=== PATIENT | female | born 1995 | race Caucasian/White ===

== ENCOUNTER 2021-08-27 18:53 | Emergency (ER) | payer BC, MEDICAID, SELFPAY ==
[2021-08-27 19:11] VITALS: BP 142/77; PULSE 116; RESP 18; TEMP 37.3; O2SAT 100
[2021-08-27 19:24] VITALS: PULSE 117; RESP 18; O2SAT 100
--- NOTE | 2021-08-27 19:29 | ED.ABDPAIN ---
HPI - Abdominal Pain General Chief Complaint: Abdominal Pain Stated Complaint: 18 weeks , abdominal pain, constipation? Time Seen by Provider: 08/27/21 19:22 Source: patient History of Present Illness HPI narrative: Patient presents with abdominal pain she is G1, P0 approximately 18+6. Reports he has had upper abdominal pain since yesterday getting worse pain is achy, constant, no clear aggravating or alleviating factors, no radiation. Pain reports she has a history of constipation and feels like this is constipation her last normal bowel movement was 4 to 5 days ago she has had small hard stools over the past 4 to 5 days. She denies urinary symptoms. Reports some vaginal bleeding was had that throughout her and is being monitored by her OB. Denies any lightheadedness or fevers. Related Data Allergies Allergy/AdvReac Type Severity Reaction Status Date / Time No Known Allergies Allergy Verified 08/27/21 20:03 Review of Systems Review of Systems: CONSTITUTIONAL: Denies fever, chills, or sweats. EYES: Denies visual changes, redness, or discharge. ENT: Denies rhinorrhea, congestion, sore throat, or otalgia. CARDIOVASCULAR: Denies chest pain, palpitations, or edema. RESPIRATORY: Denies cough or dyspnea. GASTROINTESTINAL: Reports abdominal pain and nausea GENITOURINARY: Denies dysuria or hematuria. SKIN: Denies rash or itching. MUSCULOSKELETAL: Denies back pain, joint pain, or myalgia. NEUROLOGIC: Denies headache, numbness, dizziness, or weakness. PSYCHIATRIC: Denies anxiety or depression. All systems reviewed & are unremarkable except as noted in HPI and below Exam Narrative: GENERAL: Well-appearing, well-nourished, and in no acute distress. HEAD: Normocephalic, atraumatic. EYES: PERRLA and EOMI. ENT: Nares clear, no rhinorrhea or epistaxis. Mucous membranes moist. NECK: Supple. No masses. No JVD CHEST: Clear to auscultation. No respiratory distress. No wheezes rales or rhonchi HEART: Regular rate and rhythm. No murmur heard. Normal peripheral pulses. ABDOMEN: Gravid abdomen mild tenderness palpation in epigastric area soft,nondistended. EXTREMITIES: Normal range of motion. No edema. SKIN: Warm, dry, no rash. NEURO: No focal deficits. Alert and oriented x3. PSYCH: Normal mood and affect. Course Reevaluation(s) Reevaluation #1: Patient reports bowel movement after fleets enema reports mild pain still present but has improved slightly continue her efforts at home. Work-up thus far is clinically unremarkable Date: 08/27/21 Time: 21:19 Vital Signs Vital signs: Vital Signs Temperature 37.3 C 08/27/21 19:11 Pulse Rate 116 H 08/27/21 19:11 Respiratory Rate 18 08/27/21 19:11 Blood Pressure 142/77 H 08/27/21 19:11 Pulse Oximetry 100 08/27/21 19:11 Temperature 37.6 C 08/27/21 21:37 Pulse Rate 112 H 08/27/21 21:37 Respiratory Rate 18 08/27/21 21:37 Blood Pressure 144/72 H 08/27/21 21:37 Pulse Oximetry 99 08/27/21 21:37 MDM - Abdominal Pain MDM Narrative Medical decision making narrative: H&P as above, vss, pt looks clinically well, exam nonacute abdomen, labs with mild leukocytosis likely related to , additional labs/img considered, symptomatic relief available as needed, on reevaluation pt continues to looks clinically well. Suspect constipation related , dns pancreatitis, perforation, severe sepsis. plan to tx/monitor as op w/ pcm f/u findings/plan discussed with pt, pt agree/comfortable with plan, return precautions given Lab Data Result diagrams: 08/27/21 19:30 08/27/21 19:30 Labs: Lab Results 08/27/21 08/27/21 08/27/21 Range/Units 19:30 19:30 19:30 WBC 12.3 H (4.5-10.0) K/mm3 RBC 4.53 (4.2-5.4) M/mm3 Hgb 12.2 (12.0-15.0) g/dL Hct 37.3 (37.0-47.0) % MCV 82.3 (80-100) fl MCH 26.9 (26-34) pg MCHC 32.7 (32-36) g/dl RDW 13.6 (11.5-14.5) % Plt Count 201 (150-375) k/mm3 MPV
[2021-08-27 19:40] LABS: Basophils Percent Auto 0.2 % (0.2-1.2); Eosinophils Absolute Auto 0.1 K/mm3 (0-0.3); Hematocrit 37.3 % (37.0-47.0); Hemoglobin 12.2 g/dL (12.0-15.0); Immature Granulocyte Absolute 0.06 K/mm3 (0.00-0.031); Immature Granulocyte Percent A 0.5 % (0-0.5); Lymphocytes Absolute Auto 0.63 K/mm3 (0.9-3.2); Lymphocytes Percent Auto 5.1 % (18.3-44.2); Mean Corpuscular HGB Conc 32.7 g/dl (32-36); Mean Corpuscular Hemoglobin 26.9 pg (26-34); Mean Corpuscular Volume 82.3 fl (80-100); Mean Platelet Volume 9.8 fl (7.4-10.4); Monocytes Absolute Auto 0.6 K/mm3 (0.1-0.6); Monocytes Percent Auto 4.6 % (2.6-8.5); Neutrophils Absolute Auto 10.9 K/mm3 (1.3-6.7); Neutrophils Percent Auto 88.6 % (45.5-73.1); Platelet Count Result 201 k/mm3 (150-375); Red Blood Count 4.53 M/mm3 (4.2-5.4); Red Cell Distribution Width 13.6 % (11.5-14.5); White Blood Count 12.3 K/mm3 (4.5-10.0)
[2021-08-27 19:47] LABS: Add Urine Microscopic? YES; Appearance Urine Clear (Clear); Bilirubin Urine Negative (Negative); Blood Urine Negative (Negative); Color Urine Yellow (Yellow); Glucose Urine UA Negative (Negative); Ketones Urine 2+ mg/dL (Negative); Leukocyte Esterase Ur 1+ LEU/UL (Negative); Mucus Urine Rare /lpf; Nitrate Urine Negative (Negative); Protein Urine Negative (Negative); Specific Grav Ur 1.024 (1.001-1.035); Squamous Epithelial Cell Urine Many /hpf (Few); Urobilinogen Urine Negative mg/dL (<2.0); WBC Urine 0-3 /hpf
[2021-08-27 19:58] LABS: Alanine Aminotransferase 37 U/L (4-35); Albumin Level 3.9 g/dL (3.5-5.1); Alkaline Phosphatase 79 U/L (38-126); Anion Gap 7 mmol/L (8-16); Aspartate Amino Transferase 33 U/L (14-36); Bilirubin,Total 0.6 mg/dL (0.2-1.3); Blood Urea Nitrogen 9 mg/dL (7-17); Calcium 8.5 mg/dL (8.4-10.2); Carbon Dioxide 22 mmol/L (22-30); Chloride 103 mmol/L (98-107); Estimated CRCL calculation 144 ml/min; Estimated Glomerular Filt Rate > 60; Glucose 108 mg/dL (65-110); Lipase 62 U/L (23-300); Potassium 3.9 mmol/L (3.4-5.0); Sodium 132 mmol/L (137-145)
[2021-08-27] MEDS: SODIUM CHLORIDE 0.9% IV 1,000 ML 999 ML IV CONT (20:04)
[2021-08-27] MEDS: Please add drug allergy info to patient profile. 1 EACH XX (20:06)
--- NOTE | 2021-08-27 20:47 | PC.NURSE ---
Patient using bedside commode at this time.
[2021-08-27 21:37] VITALS: BP 144/72; PULSE 112; RESP 18; TEMP 37.6; O2SAT 99
== END 2021-08-27 21:40 | disposition home or self-care (01) ==
PROVIDERS: Emergency Provider Emergency Medicine; PCP Family Medicine
DX: O26.892 Other specified pregnancy related conditions, second trimester (principal); R10.10 Upper abdominal pain, unspecified; O99.612 Diseases of the digestive system complicating pregnancy, second trimester; K59.00 Constipation, unspecified; Z3A.18 18 weeks gestation of pregnancy
CPT/HCPCS: 36415; 80053; 81001; 83690; 84702; 85025; 96360; 99283; J7030

== ENCOUNTER 2022-01-13 15:14 | Outpatient (CLI) | payer OTHER, SELFPAY ==
[2022-01-13] VITALS (9 sets, daily range): BP systolic 128–139; BP diastolic 81–93; PULSE 74–88; O2SAT 99
[2022-01-13 16:14] LABS: Basophils Percent Auto 0.2 % (0.2-1.2); Eosinophils Absolute Auto 0.2 K/mm3 (0-0.3); Eosinophils Percent Auto 1.7 % (0-4.4); Hematocrit 34.9 % (37.0-47.0); Immature Granulocyte Absolute 0.05 K/mm3 (0.00-0.031); Immature Granulocyte Percent A 0.6 % (0-0.5); Lymphocytes Absolute Auto 1.56 K/mm3 (0.9-3.2); Lymphocytes Percent Auto 17.3 % (18.3-44.2); Mean Corpuscular HGB Conc 31.5 g/dl (32-36); Mean Corpuscular Hemoglobin 25.1 pg (26-34); Mean Corpuscular Volume 79.5 fl (80-100); Mean Platelet Volume 12.3 fl (7.4-10.4); Monocytes Percent Auto 11.2 % (2.6-8.5); Neutrophils Absolute Auto 6.2 K/mm3 (1.3-6.7); Platelet Count Result 211 k/mm3 (150-375); Red Blood Count 4.39 M/mm3 (4.2-5.4); Red Cell Distribution Width 14.3 % (11.5-14.5)
[2022-01-13 16:20] LABS: Appearance Urine Slightly Cloudy (Clear); Bilirubin Urine Negative (Negative); Blood Urine Negative (Negative); Color Urine Yellow (Yellow); Glucose Urine UA Trace mg/dL (Negative); Ketones Urine Negative (Negative); Leukocyte Esterase Ur 1+ LEU/UL (NEGATIVE); Nitrate Urine Negative (Negative); Protein Urine 1+ mg/dL (Negative); Specific Grav Ur 1.015 (1.001-1.035); Urobilinogen Urine 0.2 mg/dL (<2.0)
[2022-01-13 16:24] LABS: Bacteria Urine Trace /hpf; RBC Urine 0-2 /hpf (0-2); Squamous Epithelial Cell Urine Rare /hpf (Few); WBC Urine 0-3 /hpf (0-3)
[2022-01-13 16:24] LABS: Creatinine Urine 49.1 mg/dL; Total Protein Urine Random 42 mg/dL; Ur Ttl Prot Creatinine Ratio 0.86 mg/mg (0-0.20)
[2022-01-13 16:31] LABS: Add Urine Microscopic? YES
--- NOTE | 2022-01-13 16:56 | PC.NURSE ---
Addendum entered by Nubia Alford RN 01/13/22 16:59: Actual time 1640 Original Note: Dr. Thornton called to review blood pressure, lab results, and tracing. Orders received to D/C with 24 hour urine.
[2022-01-14 04:13] LABS: Alanine Aminotransferase 9 U/L (6-35); Albumin Level 3.2 g/dL (3.5-5.1); Alkaline Phosphatase 205 U/L (38-126); Anion Gap 5 mmol/L (8-16); Aspartate Amino Transferase 17 U/L (14-36); Bilirubin,Total 0.2 mg/dL (0.2-1.3); Blood Urea Nitrogen 9 mg/dL (7-17); Calcium 8.5 mg/dL (8.4-10.2); Carbon Dioxide 19 mmol/L (22-30); Chloride 108 mmol/L (98-107); Estimated Glomerular Filt Rate > 60; Glucose 81 mg/dL (65-110); Potassium 4.4 mmol/L (3.4-5.0); Sodium 132 mmol/L (137-145); Uric Acid 4.6 mg/dL (2.5-7.5)
== END 2022-01-13 16:51 | disposition home or self-care (01) ==
LOC: ANHOBOP 15:18 → ANHOBPP 15:21
PROVIDERS: Student in an Organized Health Care Education/Training Program; PCP Family Medicine; Visit Provider Obstetrics & Gynecology
DX: O13.9 Gestational [pregnancy-induced] hypertension without significant proteinuria, unspecified trimester (principal); Z3A.00 Weeks of gestation of pregnancy not specified
CPT/HCPCS: 36415; 59025; 80053; 81001; 82570; 84156; 84550; 85025; 87086; 87088; 99199

== ENCOUNTER 2022-01-14 16:13 | Outpatient (CLI) | payer OTHER, SELFPAY ==
[2022-01-14 16:28] VITALS: BMI 40.3
[2022-01-14 19:40] LABS: Collection Time Urine 24 HOURS
[2022-01-14 19:43] LABS: Total Volume 24 Hour Urine 1600 ml
[2022-01-14 19:44] LABS: Patient Weight 213 Lbs
[2022-01-14 19:52] LABS: Creatinine Clearance Urine 153.6 ml/min (75-125); Creatinine Urine 92.7 mg/dL; Total Protein Urine Random 40 mg/dL
[2022-01-14 19:58] LABS: Total Protein Urine 24 Hr 640 mg/24hr (28-141)
== END 2022-01-14 16:14 | disposition home or self-care (01) ==
LOC: ANHOBOP 16:24
PROVIDERS: PCP Family Medicine; Visit Provider Student in an Organized Health Care Education/Training Program
DX: O13.9 Gestational [pregnancy-induced] hypertension without significant proteinuria, unspecified trimester (principal); Z3A.00 Weeks of gestation of pregnancy not specified
CPT/HCPCS: 81050; 82575; 84156

== ENCOUNTER 2022-01-21 12:05 | Inpatient (IN) | payer OTHER, SELFPAY ==
[2022-01-21] VITALS (15 sets, daily range): BP systolic 128–167; BP diastolic 79–97; PULSE 74–91; RESP 17; TEMP 36.4–36.9; BMI 40.6
--- NOTE | 2022-01-21 12:37 | LDADM ---
This patient, Jolynn Blum, was admitted to Labor/Delivery/Recovery 107 on 01/21/22 at 12:05. Plans for labor, pain management and were discussed with patient. Patient/family oriented to hospital policies and general routines including ID bracelet, bed and alarms, visiting hours, pain management, procedures, bathroom and other care routines, personal items, smoking policy, room service/diet and guest tray routines, infant security routines, and visiting hours. Patient/Family are encouraged to report perceived risks to care and to ask questions if they do not understand what they are told or what they should do. See OBIX for further documentation.
[2022-01-21 12:46] LABS: Basophils Percent Auto 0.1 % (0.2-1.2); Eosinophils Absolute Auto 0.2 K/mm3 (0-0.3); Eosinophils Percent Auto 1.8 % (0-4.4); Hematocrit 36.3 % (37.0-47.0); Hemoglobin 11.2 g/dL (12.0-15.0); Immature Granulocyte Absolute 0.04 K/mm3 (0.00-0.031); Immature Granulocyte Percent A 0.4 % (0-0.5); Lymphocytes Absolute Auto 1.51 K/mm3 (0.9-3.2); Lymphocytes Percent Auto 16.9 % (18.3-44.2); Mean Corpuscular HGB Conc 30.9 g/dl (32-36); Mean Corpuscular Hemoglobin 25.2 pg (26-34); Mean Corpuscular Volume 81.8 fl (80-100); Mean Platelet Volume 12.3 fl (7.4-10.4); Monocytes Absolute Auto 0.7 K/mm3 (0.1-0.6); Monocytes Percent Auto 7.5 % (2.6-8.5); Neutrophils Absolute Auto 6.5 K/mm3 (1.3-6.7); Neutrophils Percent Auto 73.3 % (45.5-73.1); Platelet Count Result 208 k/mm3 (150-375); Red Blood Count 4.44 M/mm3 (4.2-5.4); Red Cell Distribution Width 14.6 % (11.5-14.5); White Blood Count 8.9 K/mm3 (4.5-10.0)
[2022-01-21] MEDS: DINOPROSTONE 10 MG VAG INSERT VAGINAL (13:09)
[2022-01-21 17:06] LABS: Alanine Aminotransferase 11 U/L (6-35); Albumin Level 3.4 g/dL (3.5-5.1); Alkaline Phosphatase 222 U/L (38-126); Anion Gap 5 mmol/L (8-16); Aspartate Amino Transferase 17 U/L (14-36); Bilirubin,Total 0.2 mg/dL (0.2-1.3); Blood Urea Nitrogen 9 mg/dL (7-17); Calcium 8.8 mg/dL (8.4-10.2); Carbon Dioxide 20 mmol/L (22-30); Chloride 107 mmol/L (98-107); Estimated CRCL calculation 111 ml/min; Estimated Glomerular Filt Rate > 60; Glucose 71 mg/dL (65-110); Potassium 4.5 mmol/L (3.4-5.0); Sodium 132 mmol/L (137-145); Uric Acid 4.6 mg/dL (2.5-7.5)
--- NOTE | 2022-01-21 19:05 | WPDANESEPP ---
Anes - Eval Pre Procedure Procedure: Labor Epidural Date/Time: 01/21/22 19:05 Pre Op Diagnosis: iol Patient Data Age: 26 Gender: F Height: 1.55 m Weight: 97 kg Last Vital Signs Temp 36.9 C 01/21/22 12:30 Pulse 86 01/21/22 19:01 BP 149/94 H 01/21/22 19:01 O2 Del Method Room Air 01/21/22 12:28 Allergies Allergy/AdvReac Type Severity Reaction Status Date / Time No Known Allergies Allergy Verified 01/21/22 12:52 Home Medications Medication Instructions Recorded Confirmed Type prenat.vits,lorene,hpi-cwnp-ozstc 1 tablet PO HS 12/25/21 01/21/22 History propranolol 10 mg tablet 10 mg PO PRN PRN Anxiety 01/21/22 01/21/22 History Laboratory Tests 01/21/22 01/21/22 01/21/22 12:33 12:33 12:33 WBC 8.9 K/mm3 K/mm3 (4.5-10.0) RBC 4.44 M/mm3 M/mm3 (4.2-5.4) Hgb 11.2 g/dL L g/dL (12.0-15.0) Hct 36.3 % L % (37.0-47.0) MCV 81.8 fl fl (80-100) MCH 25.2 pg L pg (26-34) MCHC 30.9 g/dl L g/dl (32-36) RDW 14.6 % H % (11.5-14.5) Plt Count 208 k/mm3 k/mm3 (150-375) MPV 12.3 fl H fl (7.4-10.4) Immature Gran % (Auto) 0.4 % % (0-0.5) Neut % (Auto) 73.3 % H % (45.5-73.1) Lymph % (Auto) 16.9 % L % (18.3-44.2) Pope % (Auto) 7.5 % % (2.6-8.5) Eos % (Auto) 1.8 % % (0-4.4) Baso % (Auto) 0.1 % L % (0.2-1.2) Lymph # (Auto) 1.51 K/mm3 K/mm3 (0.9-3.2) Pope # (Auto) 0.7 K/mm3 H K/mm3 (0.1-0.6) Eos # (Auto) 0.2 K/mm3 K/mm3 (0-0.3) Baso # (Auto) 0.0 K/mm3 K/mm3 (0.0-0.1) Abs Immat Gran (auto) 0.04 K/mm3 H K/mm3 (0.00-0.031) Absolute Neuts (auto) 6.5 K/mm3 K/mm3 (1.3-6.7) Absolute Nucleated RBC 0.0 K/mm3 K/mm3 (0.0-0.012) Nucleated RBC % 0.0 % % (0.0-0.2) Sodium Potassium Chloride Carbon Dioxide Anion Gap BUN Creatinine Estim Creat Clear Calc Estimated GFR Glucose Uric Acid Calcium Total Bilirubin AST ALT Alkaline Phosphatase Total Protein Albumin RPR Pending Blood Type A Positive Antibody Screen Negative 01/21/22 16:47 WBC RBC Hgb Hct MCV MCH MCHC RDW Plt Count MPV Immature Gran % (Auto) Neut % (Auto) Lymph % (Auto) Pope % (Auto) Eos % (Auto) Baso % (Auto) Lymph # (Auto) Pope # (Auto) Eos # (Auto) Baso # (Auto) Abs Immat Gran (auto) Absolute Neuts (auto) Absolute Nucleated RBC Nucleated RBC % Sodium 132 mmol/L L mmol/L (137-145) Potassium 4.5 mmol/L mmol/L (3.4-5.0) Chloride 107 mmol/L mmol/L (98-107) Carbon Dioxide 20 mmol/L L mmol/L (22-30) Anion Gap 5 mmol/L L mmol/L (8-16) BUN 9 mg/dL mg/dL (7-17) Creatinine 0.70 mg/dL mg/dL (0.7-1.0) Estim Creat Clear Calc 111 ml/min ml/min Estimated GFR > 60 (59 - ) Glucose 71 mg/dL mg/dL (65-110) Uric Acid 4.6 mg/dL mg/dL (2.5-7.5) Calcium 8.8 mg/dL mg/dL (8.4-10.2) Total Bilirubin 0.2 mg/dL mg/dL (0.2-1.3) AST 17 U/L U/L (14-36) ALT 11 U/L U/L (6-35) Alkaline Phosphatase 222 U/L H U/L (38-126) Total Protein 7.0 g/dL g/dL (6.3-8.2) Albumin 3.4 g/dL L g/dL (3.5-5.1) RPR Blood Type Antibody Screen Patient hx anesthesia problems: none Family hx anesthesia problems: none Results Review: All pre-operative results and documents have been reviewed as part of the pre-operative evaluation. [facility] Family History Family History (Reviewed 01/21/22 @ 19:05 by Howard
[2022-01-22] VITALS (165 sets, daily range): BP systolic 100–168; BP diastolic 49–153; PULSE 82–237; RESP 12–18; TEMP 36.2–38.3; O2SAT 94–100
[2022-01-22] MEDS: LACTATED RINGERS 1,000 ML 125 ML IV CONT ×2 (02:35→04:38)
[2022-01-22] MEDS: OXYTOCIN 30 UNITS/NS 500 ML 30 UNITS/500 ML BAG IV CONT (02:36)
--- NOTE | 2022-01-22 07:15 | WPDOBADMIT ---
Obstetrics - Admit Note Admission Note: record reviewed. Additions to the history and/or subsequent changes in the physical findings follow. 26 y/o G1 at 39 5/7 weeks with mild preeclampsia based on bp and urine protein of 600 mg. I advised induction of labor. She has no headaches, no visual field change, no epigastric or RUQ pain, minimal edema. Cervidil yesterday, has been withdrawn. Now receiving oxytocin. She had SROM and is now comfortable with epidural. GBS neg. AVSS (bp 140-150/80-90) NST reactive TOCO: contractions every 2-4 min ABD soft, nontender, gravid, vertex EXT nontender Cervix 9/100+1 A; IUP at term with mild preeclampsia. P: Continue oxytocin. Anticipate .
[2022-01-22 07:52] LABS: Rapid Plasma Reagin Non-Reactive (NonReactive)
--- NOTE | 2022-01-22 12:18 | PM.OBPNLAB ---
Pain Control Date/time seen: 01/22/22 12:18 Pushing well. AVSS NST reactive TOCO: contractions every 2-4 min Cervix C/+2 Continue pushing.
--- NOTE | 2022-01-22 13:43 | PM.OBPRVD ---
OB - Delivery Note Procedure Delivery date: 01/22/22 Procedure: Induction of labor with Induction method: Per Cervidil Protocol Delivery augmentation: Rupture of Membranes and Pitocin Delivery monitor: External FHT, External Uterine, Internal FHT and Internal Uterine Route of delivery: Laceration Description: Vaginal and Labial Delivery repair: vicryl (3-0) Specimen: Yes (cord blood, placenta) Quantitative Blood Loss (ml): 220 Anesthesia type: Epidural Disposition: PACU Complications: None Narrative: 26 y/o at 39 5/7 weeks gestation who presented to the hospital for induction of labor. A 24 hour urine returned showing 600 mg protein, and her bp was elevated in the office yesterday. Cervidil was placed, then withdrawn after 12 hours. Oxytocin was administered intravenously. Amniotomy was performed with return of clear fluid. She received an epidural for pain control. Her labor progressed and her cervix dilated completely. She pushed with good effort and delivered the infant's head to the perineum. A loose nuchal cord was splinted and the body delivered. The cord was reduced. The nose and mouth were bulb suctioned. After a delay, the cord was clamped and cut. The infant was handed off the field. Cord blood was collected. The placenta delivered spontaneously and was grossly normal in appearance. The usual 3 vessel cord was noted. A distal vaginal laceration and bilateral labial lacerations were reapproximated using 3 0 Vicryl in interrupted figure of eight fashion. Excellent hemostasis resulted as did excellent reapproximation of the normal anatomy. Needle and instrument counts were correct. The patient was taken to recovery room in stable condition. The went to the nursery in stable condition. I was present and scrubbed for the entire delivery. [place] Baby Date of : 01/22/22 Time of : 13:27 Weeks of gestation at delivery: 39 Infant gender: Male Weight (pounds): 6 Weight (ounces): 14 presentation: vertex position: Left Occiput Anterior Placenta delivery description: Spontaneous and Normal Configuration Cord Vessel Description: 3 Vessels, Nuchal Cord and Delayed Cord Clamping score one minute: 8 score five minutes: 9
[2022-01-22] MEDS: OXYTOCIN 30 UNITS/NS 500 ML 30 UNITS/500 ML BAG 125 UNITS IV CONT (14:14)
--- NOTE | 2022-01-22 17:19 | PM.OBDSVD ---
DS: Admitting Diagnosis Discharge Date 01/23/22 Admitting Diagnosis IUP at 39 5/7 weeks Mild preeclampsia DS: Discharge Diagnosis Discharge Diagnosis (1) (normal spontaneous vaginal delivery): Code(s): O80 - Encounter for full-term uncomplicated delivery Status: Acute (2) Mild preeclampsia: Code(s): O14.00 - Mild to moderate pre-eclampsia, unspecified trimester Status: Acute OB - DS: Summary OB Procedures : PIH Mgmt OB Procedures Intrapartum: Spontaneous Vag Delivery OB Procedures: : None Time Spent with Patient Time attestation: Total time spent providing and/or coordinating discharge services: DS: Data Data Completed and Pending Pending studies at discharge: Pending at discharge 01/22/22 13:30 Surgical [PTH] Routine Labs on day of discharge: Labs from last 24 hours 01/21/22 12:33 RPR Non-reactive Discharge Plan Discharge Attending physician on discharge: Amilcar Zacarias Consulting providers: Johana Moncada Discharging Clinician: Jonathan Thornton Patient Disposition: Home, Self-Care Activity: pelvic rest Diet: regular Discharge Instructions: Education: Mom and Baby Guide Given to: Mother Follow-Up: Call your delivering provider's office for an appointment to be seen in: 6 Weeks [facility]. Appointment Date/Time: January 24, 2022 at 9:00 am What to expect at your follow-up visit: Blood Pressure Check Physical Assessment Call [phone] if you are unable to keep your appointment time. BREAST CARE: * Wear a snug supportive bra. * For engorgement discomfort: Breast Feeding: * Apply warm moist washcloths * Express milk as needed to relieve engorgement * Wear loose clothing Bottle Feeding: * May apply ice packs * For sore nipples: * Identify correct latch-on * Apply warm moist washcloths before and after nursing * Air dry nipples after nursing * May apply Lansinoh cream to nipples EPISIOTOMY/PERINEAL CARE: * Until bleeding stops, use your luly bottle after urinating * Change your pad frequently throughout the day * You may take sitz baths several times a day (fill your bathtub with warm water and soak for 20 minutes.) Do NOT bathe in the water * No tub baths until seen by your physician - You may shower ACTIVITY: * Rest as much as possible. * Do not exercise or lift anything heavier than your baby (such as laundry or other children.) * Avoid stairs or driving as much as possible. * Do not put anything into the vagina. No douching, tampons, or sexual activity until seen by physician. NOTIFY PHYSICIAN IF YOU HAVE ANY QUESTIONS OR IF ANY OF THE FOLLOWING SYMPTOMS OCCUR: * If your Vaginal area becomes red, swollen, or more painful than what you have experienced in the hospital. * If your vaginal bleeding becomes foul smelling. * If your vaginal bleeding becomes more heavy than a period or if your bleeding changes from pink to bright red. However, you may pass an occasional walnut-sized clot once or twice for the first week . * If you experience a sharp, shooting pain in your calves. * If you discover a hard, reddened area on your breast or if you experience flu-like symptoms. DIET: * Eat regular, well-balanced meals. * Drink plenty of fluids daily. If , drink to thirst. Call or return if temperature above 100.4? F, increased abdominal pain, increased vaginal bleeding or any new problems. Stand Alone Forms: General Discharge Information Follow-up/Referrals: Amilcar Zacarias MD [Physician] - 6 Weeks Discharge Medications: New ibuprofen 600 mg tablet 600 mg PO Q6H PRN (Reason: cramps) Qty: 30 0RF Continued prenat.vits,lorene,mey-rrpm-qxast Tablet 1 tablet PO HS propranolol 10 mg T
--- NOTE | 2022-01-22 17:42 | PC.NURSE ---
[id number] Patient transferred to post room #284 via (wheelchair ). Support person present. Oriented to unit, room, information board, rooming in, admission packet and security measures. Patient verbalizes understanding.
[2022-01-23] MEDS: IBUPROFEN 600 MG TABLET PO (00:24)
[2022-01-23 00:25] VITALS: BP 134/89; PULSE 108; RESP 20
[2022-01-23 04:15] VITALS: BP 140/81; PULSE 91; RESP 18
[2022-01-23 05:34] LABS: Hematocrit 31.9 % (37.0-47.0); Hemoglobin 10.1 g/dL (12.0-15.0)
--- NOTE | 2022-01-23 06:19 | WPDANLDPN2 ---
Anes-Prog Note L&D Date/Time: 01/23/22 06:19 Comfortable throughout: labor and delivery Neuraxial method: epidural Epidural/Spinal procedure site: clean & non-tender Neuro status: Neuro function grossly intact. Cardiovascular status: normal Respiratory status: normal Airway patency: baseline Mental status: baseline Post-Op hydration status: normal Vital Signs: Last Vital Signs Temp 36.6 C 01/22/22 21:00 Pulse 91 01/23/22 04:15 Resp 18 01/23/22 04:15 BP 140/81 01/23/22 04:15 Pulse Ox 98 01/22/22 16:30 O2 Del Method Room Air 01/22/22 16:30 Pain score (VAS): 0 I/O: Intake & Output 01/22/22 01/22/22 01/23/22 15:59 23:59 07:59 Intake Total 1300 700 Output Total 738 88 1340 Balance -220 1240 -500 Patient feedback: Patient satisfied with anesthetic care.
--- NOTE | 2022-01-23 07:53 | PM.OBDSVD ---
DS: Admitting Diagnosis Discharge Date 01/23/22 Admitting Diagnosis intrauterine at term gestational hypertension OB - DS: Summary OB Procedures : None OB Procedures Intrapartum: Spontaneous Vag Delivery OB Procedures: : None Status at Discharge Functional status at discharge: independent ambulation Overall status at discharge: patient is back to baseline Time Spent with Patient Time attestation: Total time spent providing and/or coordinating discharge services: Time spent: Less than 30 minutes Exam Const: General: comfortable and no acute distress Resp: Effort & Inspection: normal respiratory effort Auscultation: clear to auscultation bilaterally Cardio: Rate: regular rate GI: GI Palp: Yes Soft to palpation Auscultation: normal bowel sounds Other: Fundus firm below umbilicus Psych: Appearance: grossly normal Mental Status: mental status grossly normal Affect: normal affect DS: Data Data Completed and Pending Pending studies at discharge: Pending at discharge 01/22/22 13:30 Surgical [PTH] Routine Labs on day of discharge: Labs from last 24 hours 01/23/22 04:17 Hgb 10.1 L Hct 31.9 L Discharge Plan Discharge Attending physician on discharge: Amilcar Zacarias Discharging Clinician: Jonathan Thornton Patient Disposition: Home, Self-Care Activity: pelvic rest Diet: regular Discharge Instructions: Call or return if temperature above 100.4? F, increased abdominal pain, increased vaginal bleeding or any new problems. Stand Alone Forms: General Discharge Information Follow-up/Referrals: Amilcar Zacarias MD [Physician] - 6 Weeks Discharge Medications: New ibuprofen 600 mg tablet 600 mg PO Q6H PRN (Reason: cramps) Qty: 30 0RF Continued #2 Tablet 1 tablet PO HS propranolol 10 mg Tablet 10 mg PO PRN PRN (Reason: Anxiety) Date of admission: 01/21/22 12:05 Primary Care Provider: KIKAMICHEL Admitting Provider: Amilcar Zacarias Attending physician on admission: Amilcar Zacarias Condition: Stable
[2022-01-23 07:55] VITALS: BP 137/73; PULSE 90; RESP 18; TEMP 36.5; O2SAT 99
[2022-01-23 09:00] VITALS: PULSE 90; RESP 16; O2SAT 99
[2022-01-23 11:56] VITALS: BP 126/70; PULSE 90; RESP 16; TEMP 36.6; O2SAT 99
[2022-01-23 12:30] VITALS: PULSE 90; RESP 16; O2SAT 99
--- NOTE | 2022-01-23 14:09 | PC.NURSE ---
[phone] RN requested to consult patient. Introductions were made, then assessed needs related to . Mother led the conversation with her experience feeding her so far and states she latches to the left breast easier than the right. Mother used an nipple shield provided by the primary RN earlier today. Reviewed use, care, benefits and cautions of nipple shield use. Mother works well with her holding skin to skin. is demonstrating feeding cues and RN offers to assist. Patient consents assistance with . Encouraged understanding of the benefits of skin to skin (unwrapping and placing vertically on her chest), responsive feeding and how to watch for early feeding signs, frequency of feeding on demand about every 8-12 times in 24 hours (every 2-3 hours), milk production, duration of feeding, signs of adequate intake/output and how to record on the feeding sheet. Reviewed positioning and ear, shoulder, hip alignment, supporting the breast, asymmetrical latch (off-center), and leading with the chin with a big open side gape. Infant latched optimally to the right breast in football position with a teacup nipple hold. Education given to mother of how to visualize suck/swallow ratios and drinking at the breast. was able to maintain latch without discomfort to mother. Nipple care reviewed with optimal latch and good positioning. Reviewed good handwashing when or touching the breast/nipples to prevent infection. Infant breastfed for 10 minutes, then self detached with no misshape to the nipple. Mother acknowledged visualizing the swallow and the sound of her infant swallowing. Infant assisted to the left breast and latched optimally with no discomfort to mother with a good suck/swallow ratio. Resources used to facilitate learning were used with the visual handouts/ tool/mom and baby guide. Mother voiced understanding of responsive feedings, stimulating with skin to skin, hand expressed colostrum, touch, talking to infant to encourage if it has been 2 -3 hours since the start of the last , to call if infant does not latch or there is discomfort with . Reported to the primary RN.
[2022-01-24 09:19] VITALS: BP 131/83; PULSE 93; RESP 18; TEMP 36.9; O2SAT 98
== END 2022-01-23 17:45 | disposition home or self-care (01) | DRG 560 ==
LOC: ANHOB2 01-23 15:59 → ANHLDR 01-26 09:56 → ANHOB2 01-26 09:56
PROVIDERS: Admitting Provider Obstetrics & Gynecology; PCP Family Medicine; Visit Provider Student in an Organized Health Care Education/Training Program
DX: O14.04 Mild to moderate pre-eclampsia, complicating childbirth (principal); Z37.0 Single live birth; Z3A.39 39 weeks gestation of pregnancy; O13.4 Gestational [pregnancy-induced] hypertension without significant proteinuria, complicating childbirth; O69.81X0 Labor and delivery complicated by cord around neck, without compression, not applicable or unspecified; O71.4 Obstetric high vaginal laceration alone; O75.2 Pyrexia during labor, not elsewhere classified
CPT/HCPCS: 36415; 80053; 84550; 85014; 85018; 85025; 86592; 86850; 86900; 86901; 88307; A9270; J2590; J2795; J7120

== ENCOUNTER 2023-08-04 14:00 | Emergency (ER) | payer OTHER, SELFPAY ==
[2023-08-04 14:05] VITALS: BP 134/75; BP 136/77; PULSE 98; RESP 18; TEMP 37.1; O2SAT 100
--- NOTE | 2023-08-04 14:17 | ED.GENADULT ---
HPI - General Adult General Stated complaint: Blood Presure Problem Time Seen by Provider: 08/04/23 14:05 Source: patient and RN notes reviewed Mode of arrival: ambulatory Limitations: no limitations History of Present Illness HPI narrative: Patient presents today complaining of elevated blood pressure at home. States she was 178/105 and 168/108 today. She is currently 14 weeks and was diagnosed with high blood pressure 2 weeks ago. Reports that she attempted to call her OBGYN today and could not get a hold of anyone and decided to come here for further evaluation. While in triage, a return phone call was obtained by the OB's office and she was told to continue to monitor at home. Related Data Allergies Allergy/AdvReac Type Severity Reaction Status Date / Time No Known Allergies Allergy Verified 08/04/23 14:08 Review of Systems Review of Systems: CONSTITUTIONAL: Denies body aches, fever, chills, or sweats. EYES: Denies visual changes, redness, or discharge. ENT: Denies rhinorrhea, congestion, sore throat, or otalgia. CARDIOVASCULAR: Denies chest pain, palpitations, or edema. RESPIRATORY: Denies cough or dyspnea. GASTROINTESTINAL: Denies abdominal pain, nausea, vomiting, or diarrhea. GENITOURINARY: Denies dysuria or hematuria. SKIN: Denies rash, itching, or wounds. MUSCULOSKELETAL: Denies back pain, joint pain, or myalgia. NEUROLOGIC: Denies headache, numbness, tingling, or weakness. PSYCH: Denies depression or anxiety. 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 Please see nursing chart for further information. There is no relevant family history pertinent to the presenting complaint Exam Narrative: GENERAL: Well-appearing, well-nourished, and in no acute distress. HEAD: Normocephalic, atraumatic. EYES: EOMI. No redness or drainage. Conjunctivae normal. ENT: Mucous membranes pink and moist. NECK: Normal AROM. Supple. No lymphadenopathy. CHEST: No respiratory distress. Clear to auscultation. HEART: Regular rate and rhythm. No murmur appreciated. EXTREMITIES: Normal range of motion. No edema. SKIN: Warm, dry, no rash. Capillary refill normal. Normal skin turgor. NEURO: No focal deficits. Alert and oriented x3. Gait steady. PSYCH: Normal affect. No signs of depression or anxiety. Course Course Level of Care: Express Care Visit Medical Decision Making MDM Narrative Medical decision making narrative: Discussed with patient when to go to the ER, when to call her doctor. No testing or medications indicated at this time. Anticipatory guidance given. Critical Care Time Critical Care Time Critical Care Time: No Discharge Plan Discharge Clinical Impression: Elevated blood pressure reading Patient Disposition: Home, Self-Care Condition: Stable Additional Instructions: Continue to monitor your blood pressure, and contact your OBGYN with any concerning elevations. If you have elevated readings and develop headache, dizziness, vision changes, please go to the ER immediately for further evaluation. Prescriptions: No Action prenat.vits,lorene,vfl-uamb-fysay Tablet 1 tablet PO HS propranolol 10 mg Tablet 10 mg PO PRN PRN (Reason: Anxiety) ibuprofen 600 mg tablet 600 mg PO Q6H PRN (Reason: cramps) Qty: 30 0RF Follow-up/Referrals: KIKA,MD MICHEL [Primary Care Provider] - Time of Disposition: 14:28
[2023-08-04 14:29] VITALS: BP 136/77; PULSE 98; RESP 18; TEMP 37.1; O2SAT 100
== END 2023-08-04 14:30 | disposition home or self-care (01) ==
PROVIDERS: Emergency Provider Nurse Practitioner; PCP Family Medicine
DX: O99.891 Other specified diseases and conditions complicating pregnancy (principal); Z3A.14 14 weeks gestation of pregnancy; R03.0 Elevated blood-pressure reading, without diagnosis of hypertension; Z87.891 Personal history of nicotine dependence
CPT/HCPCS: 99213; G0463